=== PATIENT | male | born 1945 | race Caucasian/White ===

== ENCOUNTER → 2022-05-23 | Outpatient (CLI) | payer MEDICARE, SELFPAY ==
[2022-05-24 14:17] LABS: PSA, Free 1.41 ng/mL; PSA, Free % 14.4 % (.)
== END | disposition home or self-care (01) ==
PROVIDERS: PCP Nurse Practitioner Adult Health; Referring Provider Registered Nurse; Visit Provider Registered Nurse
DX: R97.20 Elevated prostate specific antigen [PSA] (principal)
CPT/HCPCS: 36415; 84153; 84154

== ENCOUNTER → 2022-07-02 | Outpatient (CLI) | payer MEDICARE, SELFPAY ==
--- NOTE | 2022-07-02 | IMM_PTH ---
PATIENT: YURIDIA HEWITT LOC: [facility] U#:[id number] AGE/SX: 76/M ROOM: RE07/02/[address]: Dr. Allen Nevarez MD : 1945 BED: DIS: 07/02/2022 SPEC #: [id number] RECD: 07/04/22 14:50 STATUS: THOMPSON REQ #: [id number] TIFFANI: 07/02/22 00:[address]: Allen Nevarez DEPT: IMMUNOHISTOCHEMISTRY RECD BY: Clare Garcia ENTERED: 07/04/22 14:52 SP TYPE: IMMUNO OTHR DR: Ashley Abarca, RUBEN Tissues: C - PROSTATE RIGHT D - PROSTATE LEFT Procedures: 34BE12 (add) P40 (add) 34BE12 (initial) PHYSICIAN & INSTITUTION [place] [address] SPECIMEN INFORMATION: Tissue Source: C - Right prostate, base, core biopsy, D - Left prostate, apex, core biopsy Clinical Info: Elevated PSA Specimen Number: [id number] C & D CPT code: 26794, 00583 x3 METHODOLOGY: Deparaffinized sections of prefer/formalin-fixed tissue or PAP/DQ stained slides are incubated with monoclonal/polyclonal antibodies/oligonucleotide probes. Localization is made via biotin free immunoperoxidase method. Appropriate controls are performed and reacted as expected. Results on target cell population are indicated in the following table: RESULTS: ANTIBODY / CLONE RESULT Block C P40 (BC28) negative 34BE12 (34BE12) negative Block D P40 (BC28) negative 34BE12 (34BE12) negative These tests were developed and their performance characteristics determined by [facility]. They may not have been cleared or approved by the U.S. Food and Drug Administration. The FDA has determined that such clearance or approval is not necessary. The above immunohistochemical/dualISH markers are ordered and reviewed by the Pathologist. INTERPRETATION: C. Right prostate, base, core biopsy: Adenocarcinoma. D. Left prostate, apex, core biopsy: Adenocarcinoma. SJ:yazmin 07/05/2022
--- NOTE | 2022-07-02 08:00 | PROSBIL_PTH ---
PATIENT: YURIDIA HEWITT [facility] U#:[id number] AGE/SX: 76/M ROOM: RE07/02/[address]: Dr. Allen Nevarez MD : 1945 BED: DIS: 07/02/2022 SPEC #: [id number] RECD: 07/02/22 15:00 STATUS: THOMPSON TRINY #: [id number] TIFFANI: 07/02/22 08:[address]: Allen Nevarez DEPT: SURGICAL PATHOLOGY RECD BY: Armida Thompson ENTERED: 07/03/22 08:28 SP TYPE: PROST BX ANGELLA DR: Ashley Abarca, RUBEN Tissues: A - PROSTATE RIGHT B - PROSTATE RIGHT C - PROSTATE RIGHT E - PROSTATE LEFT F - PROSTATE LEFT G - PROSTATE LEFT Procedures: PROSTATE BX HEADER OPERATION: Prostate biopsy PRE-OP DIAGNOSIS: Elevated PSA TISSUE SUBMITTED: A - Right apex, B - Right mid, C - Right base, D - Left apex, E - Left mid, F - Left base MICROSCOPIC DIAGNOSIS A. Right prostate, apex, core biopsy: Prostatic adenocarcinoma. [facility] grade: 3+3=6 Number of cores involved: 1/1 Proportion of tissue involved: ~50% Perineural invasion: Not identified. Greatest tumor length: 0.7 cm B. Right prostate, mid, core biopsy: Prostatic adenocarcinoma. [facility] grade: 3+3=6 Number of cores involved: 1/1 Proportion of tissue involved: ~25% Perineural invasion: Not identified. Greatest tumor length: 0.4 cm C. Right prostate, base, core biopsy: Prostatic adenocarcinoma. [facility] grade: 3+3=6 Number of cores involved: 1/1 Proportion of tissue involved: <5% Perineural invasion: Not identified. Greatest tumor length: <0.1 cm See comment. D. Left prostate, apex, core biopsy: Prostatic adenocarcinoma. [facility] grade: 3+3=6 Number of cores involved: 1/1 Proportion of tissue involved: <5% Perineural invasion: Not identified. Greatest tumor length: 0.1 cm Focal high-grade prostatic intraepithelial neoplasia (HGPIN). See comment. E. Left prostate, mid, core biopsy: Prostatic adenocarcinoma. [place] grade: 3+3=6 Number of cores involved: 1/1 Proportion of tissue involved: 40% Perineural invasion: Not identified. Greatest tumor length: 0.6 cm Focal high-grade prostatic intraepithelial neoplasia (HGPIN). F. Left prostate, base, core biopsy: Prostatic adenocarcinoma. [facility] grade: 3+3=6 Number of cores involved: 1/1 Proportion of tissue involved: 30% Perineural invasion: Not identified. Greatest tumor length: 0.3 cm SJ:yazmin 07/04/2022 COMMENT C & D. Immunohistochemistry ([id number]) supports the above diagnosis. This case has been reviewed in consultation with Dr. Thakur who concurs with the above diagnosis. MICROSCOPIC DESCRIPTION Slides are reviewed. GROSS DESCRIPTION A - Received is one container designated prostate, right apex. The specimen consists of one elongated fragment of light elliott-white soft tissue measuring 1.5 cm in length and 0.1 cm in diameter. The specimen is totally submitted in one cassette. B - Received is one container designated prostate, right mid. The specimen consists of one elongated fragment of light elliott-white soft tissue measuring 2.0 cm in length and 0.1 cm in diameter. The specimen is totally submitted in one cassette. C - Received is one container designated prostate, right base. The specimen consists of one elongated fragment of light elliott-white soft tissue measuring 2.0 cm in length and 0.1 cm in diameter. The specimen is totally submitted in one cassette. D - Received is one container designated prostate, left apex. The specimen consists of one elongated fragment of light elliott-white soft tissue measuring 1.5 cm in length and 0.1 cm in diameter. The specimen is totally submitted in one cassette. E - Received is one container designated prostate, left mid. The specimen consists of one elongated fragment of light elliott-white soft tissue measuring 1.5 cm in length and 0.1 cm in diameter. The specimen is totally submitted in one cassette. F - Received is one container designated prostate, left base. The specimen consists of one elongated fragment of light elliott-white soft tissue measuring 1.0 cm in length and 0.1 cm in diameter. The specimen is totally submitted in one cassette. / AM:yazmin 07/03/2022 TC:0 CPT: G0146
== END | disposition home or self-care (01) ==
LOC: LABSPEC 15:30
PROVIDERS: PCP Nurse Practitioner Adult Health; Referring Provider Urology; Visit Provider Urology
DX: R97.20 Elevated prostate specific antigen [PSA] (principal)
CPT/HCPCS: 88305; 88341; 88342; G0416

== ENCOUNTER 2022-09-04 05:03 | Day surgery (SDC) | payer MEDICARE, SELFPAY ==
[2022-09-04] VITALS (7 sets, daily range): BP systolic 115–187; BP diastolic 53–94; PULSE 60–100; RESP 16–18; TEMP 36.6–37.1; O2SAT 96–99; BMI 41.8
[2022-09-04] MEDS: Lactated Ringers 1,000 ML 15 ML IV (06:05)
[2022-09-04 06:33] LABS: Bedside Glucose 137 mg/dL (74-106)
--- NOTE | 2022-09-04 07:15 | PCM.HP.STD ---
[facility] - General General Date of Service: 09/04/22 Chief Complaint: Prostate cancer [facility] Narrative YURIDIA HEWITT, is a 76 M who presents for placement of spacer gel and also gold markers for prostate cancer treatment he is going to have radiation therapy. [facility] Medical History (Updated 08/28/22 @ 13:36 by Loida Cardona) Alcohol use Ambulates with cane Arthritis Back pain Benign prostatic hyperplasia without lower urinary tract symptoms Cancer CPAP (continuous positive airway pressure) dependence Diabetes Dietary restriction Easy bruising Elevated PSA Essential hypertension Former smoker History of edema History of ITP History of pain when walking Hypercholesterolemia Injury of head and neck Loss of hearing Prostate disease Shortness of breath on exertion Wears glasses Home Medications atorvastatin 20 mg tablet 20 mg PO QHS 90 days ##90 04/14/17 [History Last Taken Unknown] glipizide 5 mg tablet 5 mg PO DAILY 30 days ##60 04/14/17 [History Last Taken Unknown] metformin 1,000 mg tablet 1,500 mg PO DAILY 90 days ##180 04/14/17 [History Last Taken Unknown] pioglitazone 45 mg tablet 45 mg PO DAILY 90 days ##90 04/14/17 [History Last Taken Unknown] ramipril 10 mg capsule 10 mg PO DAILY 90 days ##180 04/14/17 [History Last Taken 09/04/22] hydrochlorothiazide 25 mg tablet 25 mg PO DAILY 07/19/22 [History Last Taken Unknown] metformin 1,000 mg tablet 1,000 mg PO QHS 08/28/22 [History Last Taken Unknown] Allergy/AdvReac Type Severity Reaction Status Date / Time aspirin Allergy DUE TO ITP Verified 08/28/22 13:18 Surgical History (Updated 08/28/22 @ 13:36 by Loida Cardona) Amputation of right thumb History of umbilical hernia repair Hx of colonoscopy S/P appendectomy Social History (Updated 07/25/22 @ 11:12 by Janett Calderon) Smoking Status: Former smoker alcohol intake: never substance use type: does not use Vital Signs Vital Signs Vital Signs: 09/04/22 06:06 09/04/22 06:06 Temperature 98.7 F Temperature Source Temporal Pulse Rate 60 Respiratory Rate 18 Respiratory Pattern Normal Blood Pressure 187/54 H Blood Pressure Mean 98 Blood Pressure Source Monitor Blood Pressure Position Semi-Fowlers Blood Pressure Location Right Arm Pulse Ox 96 Oxygen Delivery Method Room Air Weight Weight: 132.449 kg Body Mass Index (BMI) 41.8 Results Lab / [facility] Labs: Laboratory Results - last 24 hr 09/04/22 06:02: POC Glucose 137 H
--- NOTE | 2022-09-04 07:31 | PCM.DC ---
Discharge Instructions Diet Discharge Diet: No restrictions Activity Discharge Activity: Return to Normal Activity Dressing / Incision Call your doctor if you observe: Fever of 101 or Higher Follow Up Care Please Follow Up With: Allen Nevarez MD When: 2 weeks for post op check Test Results: Test results from this visit will be discussed in further detail at your follow-up appointment, if applicable. Discharge Plan Admission Primary Reason for Your Visit: markers and spacer gel Attending Provider: Allen Nevarez Primary Care Provider: Ashley Abarca NP Discharge Orders/Prescriptions Prescriptions: New ciprofloxacin HCl [Cipro] 500 mg tablet 500 mg PO BID 5 Days Qty: 10 0RF Continued atorvastatin 20 mg tablet 20 mg PO QHS 90 Days Qty: 90 Label Comments: TAKE 1 TABLET BY MOUTH ONCE DAILY pioglitazone 45 mg tablet 45 mg PO DAILY 90 Days Qty: 90 Label Comments: TAKE 1 TABLET BY MOUTH ONCE DAILY metformin 1,000 mg tablet 1,500 mg PO DAILY 90 Days Qty: 180 Label Comments: Take 1 tablet by mouth twice daily with meals. glipizide 5 mg tablet 5 mg PO DAILY 30 Days Qty: 60 Label Comments: TAKE 1 TABLET BY MOUTH TWICE DAILY BEFORE MEALS ramipril 10 mg capsule 10 mg PO DAILY 90 Days Qty: 180 Label Comments: TAKE 1 CAPSULE BY MOUTH TWICE DAILY hydrochlorothiazide 25 mg tablet 25 mg PO DAILY metformin 1,000 mg Tablet 1,000 mg PO QHS Referrals / Follow Up: Allen Nevarez MD [Med Staff - Active Staff] - Ashley Abarca NP, [employer]ACHINE OPERATOR-[employer] [Primary Care Provider] - Disposition Disposition (needs filled in before D/C Order can be placed): Home, Self Care
[2022-09-04] MEDS: 0.9% Normal Saline (Pres. free 10 ML Vial (07:50)
--- NOTE | 2022-09-04 07:59 | PCM.OPRPT ---
Report of Operation Date of Procedure: 09/04/22 Pre-Operative Diagnosis: Low risk prostate cancer Post-Operative Diagnosis: The same Surgery/Procedure Performed:: Placement of gold markers and spacer gel matrix for radiation planning Description of Surgical Findings:: The penis and testicles were prepped and draped in usual sterile fashion, ultrasound probe was placed into the rectum and biplanar ultrasound was performed on the prostate. Identified the base mid and apex of the prostate identified the transition zone prostate. Then using a needle the first yield loss inspector was placed into the right base of the prostate, the second yield loss inspector was placed in the left base of the prostate, and the third core marker was placed in the right apex of the prostate after all 3 markers were placed the placement of the markers were confirmed by ultrasonography. Then the genitals and perineum were prepped and draped in usual sterile fashion. I then introduced a biplanar ultrasound probe into the rectum and performed ultrasonography and identified the Denonvilliers' fascia the prostate mid base and apex and seminal vesicles. The spacer gel mix was then prepared on the back table per manufactures instruction. Under ultrasound guidance in the midline perineum a bevel needle down we advanced through the perineum below the prostate into the space of Denonvilliers' fascia. This space which could be identified by ultrasound with a bright white layer between the prostate and the rectum. I then injected a puff of normal saline to identify the space further. After I confirmed that the needle was in the correct space in the mid prostate and the space of Denonvilliers' fascia between the rectum and the prostate. Then over the course of 15 seconds the gel matrix was injected slowly there was nice separation between the prostate and the rectum at the gel matrix was injected. The position of the gel matrix was confirmed by ultrasound. Then the injection needle was removed intact. Patient's perineum was cleaned patient was taken out of stirrups and then taken back to the PACU in good condition. Surgeon: Allen Nevarez Type of Anesthesia: MAC Estimated Blood Loss (mL): 0 Admit VTE Documentation VTE Present on Admission: No VTE Mechan Device Prophylaxis: SCD's VTE Pharm Prophylaxis ordered?: No
== END 2022-09-04 09:13 | disposition home or self-care (01) ==
LOC: SDC 05:05 → AC 05:10
PROVIDERS: PCP Nurse Practitioner Adult Health; Referring Provider Urology; Visit Provider Urology
PROC: (CPT 55874; principal; 2022-09-04 07:15)
DX: C61 Malignant neoplasm of prostate (principal); E11.9 Type 2 diabetes mellitus without complications; I10 Essential (primary) hypertension; E78.00 Pure hypercholesterolemia, unspecified; Z87.891 Personal history of nicotine dependence; Z90.49 Acquired absence of other specified parts of digestive tract; Z86.2 Personal history of diseases of the blood and blood-forming organs and certain disorders involving the immune mechanism
CPT/HCPCS: 55876; 00400; 82962; J7120; J2405; J3490

== ENCOUNTER → 2022-09-11 | Outpatient (CLI) | payer MEDICARE, SELFPAY ==
--- NOTE | 2022-09-11 12:15 | MRI_ITS ---
STUDY: MR PELVIS WITH T WITHOUT CONTRAST REASON FOR EXAM: Male, 76 years old. eval extent of disease, planning for XRT -- prostate cancer, getting XRT TECHNIQUE: Standardized fat and water weighted pulse sequences were obtained in all 3 orthogonal planes, pre-and post contrast administration. 25 ML CLARISCAN IV was administered for the contrast portion of the examination. COMPARISON: None. FINDINGS: Normal urinary bladder. Visualized hollow viscus structures are unremarkable. There is fluid between the prostate and rectum, likely iatrogenic. The prostate is heterogeneous, particularly in the transitional zone. No abnormal areas of restricted diffusion. There are multiple seminal vesicle cysts. There is no pelvic mass lesion or lymphadenopathy. Normal visualized pelvic arteries. No bone marrow edema. Large periumbilical fat-containing hernia is partially visualized. MRI/Pelvis W/WO Contrast IMPRESSION: 1. No extraprostatic mass or adenopathy. 2. Fluid between the prostate gland and rectum, likely iatrogenic. 3. Prostatomegaly, BPH. 4. Periumbilical fat-containing hernia partially visualized. Electronically Signed: James Pemberton (Brooks), at 17:04 EDT Reading Location ID and State: [facility] / [place] , Service support ,
--- NOTE | 2022-09-11 13:15 | RAD_ITS ---
STUDY: X-RAY - ORBITS REASON FOR EXAM: Male, 76 years old. HX METAL TO EYE,,PRE MRI -- PT IN WAITING ROOM TECHNIQUE: 2 view(s) of the orbits were obtained. COMPARISON: None. FINDINGS: Normal bilateral orbits without a metallic orbital foreign body. Normal visualized facial bones. Normal paranasal sinuses. The soft tissue structures are unremarkable. RAD/Orbits for Foreign Body IMPRESSION: No demonstrated metallic orbital foreign body. The patient is cleared for an MRI examination. Electronically Signed: Remy Tobar MD at 14:02 EDT ,
[2022-09-11 13:45] LABS: EGFR FINGERSTICK > 60.0000 mL/min (>60)
== END | disposition home or self-care (01) ==
PROVIDERS: PCP Nurse Practitioner Adult Health; Referring Provider Student in an Organized Health Care Education/Training Program; Visit Provider Student in an Organized Health Care Education/Training Program
DX: C61 Malignant neoplasm of prostate (principal)
CPT/HCPCS: 70030; 72197; 77014; 77290; A9575